=== PATIENT | male | born 1995 | race Caucasian/White ===

== ENCOUNTER 2018-06-04 11:32 | Emergency (ER) | payer SELFPAY ==
[2018-06-04 11:37] VITALS: BP 133/102; PULSE 82; RESP 18; TEMP 36.9; O2SAT 98
--- NOTE | 2018-06-04 11:42 | DI.RPTCT_ITS ---
SYMPTOM/DIAGNOSIS: S/P HIT NOSE ON TRAMPOLINE, R/O ACUTE FX, INTRACRANIAL INJURY CT SCAN FACE AND BRAIN: Noncontrast examination was performed. No priors for comparison. No intracranial hemorrhage is seen. The [place] white matter differentiation is intact. The ventricles are intact. The basilar cisterns are patent There is no acute midline shift or mass effect. No evidence of a calvarial fracture is present. There is an angulated fracture of the anterior nasal spine of the maxilla. There are bilateral nasal bone fractures. The left nasal bone is comminuted and mildly depressed. No other facial fractures identified. There is mucosal thickening seen in the anterior ethmoid air cells and frontal sinuses bilaterally. The remaining visualized paranasal sinuses are clear. No fluid levels are present. The orbits and retro-orbital soft tissues are unremarkable.. IMPRESSION: 1. No acute intracranial process 2. Fractures involving the nasal bones and the anterior nasal spine of the maxilla. The findings were discussed with Dr. Arroyo of the Emergency Department on the date of the examination. CT SCAN CERVICAL SPINE: Multiple contiguous axial images of the cervical spine were obtained. Sagittal and coronal reformatted images were evaluated on the [facility]'s work station. There is no acute fracture or subluxation of the cervical spine. The bones are normally mineralized. There is no prevertebral soft tissue swelling. The lung apices are clear. IMPRESSION: No acute fractures or subluxations in the cervical spine. The findings were conveyed to the Emergency Department on the date of the examination.
--- NOTE | 2018-06-04 11:43 | ED.GENADUL_ITS ---
Disposition Clinical Impression: Nasal bone fractures Disposition: HOME Condition: Stable Instructions: Nasal Fracture (ED), Head Injury (ED) Additional Instructions: Take Tylenol or Motrin as needed and directed for pain. No nose blowing for 2 weeks. Sneeze with mouth open for 2 weeks. Use Saline nose spray to help with bleeding or clots in your nose. Follow-up at the ear nose and throat clinic at [facility] in 1 week. You should receive a call today or tomorrow regarding a follow-up appointment. If you do not, call [facility] at [phone] and ask for the ENT clinic. Take the antibiotics until finished. Return immediately to the emergency department any worsening or new concerning symptoms. Prescriptions: Amoxicillin 875/Clav. 125 [Augmentin 875-125 Tablet] 1 each PO BID 7 Days tab Medical Decision Making - Radiology Data Radiology results: report reviewed, image reviewed - Medical Decision Making 23-year-old male presents with facial injury after fell hitting his nose on a metal pole on a trampoline. Denies LOC or vomiting. States his tetanus is up- to-date. Patient was incarcerated recently and received his tetanus there. Patient has significant trauma and deformity noted to nose. Normal extraocular movements and no evidence of free-floating bones and face or step-off. Midline C-spine tender. Remainder of exam within normal limits without chest or abdominal trauma and full range of motion of bilateral upper and lower extremities. 1220: Imaging reviewed with radiology. Patient has a lateral nasal bone fractures and a fracture of the anterior nasal spine of the maxilla in the midline. Normal head and C-spine. Remainder of face intact. Will send images to [facility] ENT for recommendations. 1330: Still awaiting [facility]. Patient states he wants to leave. The risks of and disability due to a serious pathology explained and patient fully understands the risks and demonstrates capacity to make decisions. Patient is now willing to stay. 1400: Discussed with ENT at [facility] -no acute reason for transfer. Recommends patient to follow-up with them in clinic in 1 week. Main reason for follow-up would be for cosmetic reasons or if difficulty breathing. He states patient will receive a call today or tomorrow regarding his follow-up appointment. Recommends Augmentin for 7 days. Agrees with plan for suture placement here and will remove the sutures in 1 week. Sutures placed without difficulty. Patient was instructed on no nose blowing, sneezing with his mouth open, and using saline nose spray as needed. Patient was instructed to return here if worse. History of Present Illness - General Chief complaint: FacialProb Stated complaint: NOSE INJURY Time Seen by Provider: 06/04/18 11:41 Source: patient Mode of arrival: ambulatory Limitations: no limitations - History of Present Illness Initial comments: Patient is a 23-year-old male who presents with facial injury after jumping on a trampoline falling and hitting his nose on the metal pole. Denies LOC or vomiting. Denies any other injuries. States his tetanus is up-to-date. - Related Data Amoxicillin 875/Clav. 125 [Augmentin 875-125 Tablet] 1 each PO BID 7 Days tab 06/04/18 Allergies Allergy/AdvReac Type Severity Reaction Status Date / Time haloperidol [From Haldol] Allergy Unverified 06/04/18 11:40 Review of Systems Constitutional: denies: chills, fever Eyes: denies: eye pain ENT: other (nose injury). denies: ear pain, dental pain Respiratory: denies: cough, shortness of breath Cardiovascular: denies: chest pain, dyspnea on exertion Gastrointestinal: denies: abdominal pain, nausea, vomiting Genitourinary: denies: urgency, dysuria, frequency Musculoskeletal: denies: back pain Skin: denies: rash, lesions Neurological: denies: headache, weakness, numbness Past Medical History - Past Medical History Medical history: no medical history Surgical history: no surgical history - Social History Smoking status: current everyday smoker Alcohol use: occasionally Drug use: marijuana General Exam - General Limitations: no limitations General appearance: alert, in no apparent distress - Eye Eye exam: Present: PERRL, EOMI - ENT ENT exam: Present: other (TM's obscured b/l due to cerumen. Multiple lacerations noted to external nose bilaterally and overlying septum. Nose appears deformed. There is active clear and serous drainage from right nares. Mild tenderness palpation of bilateral maxilla but no evidence of edema, ecchymosis. No crepitus noted to face and remainder of face does not appear deformed and no free-floating palpated. ) - Neck Neck exam: Present: other (tenderness to palpation midline cervical spine without evidence of trauma.) - Respiratory Respiratory exam: Present: normal lung sounds bilaterally, other (No evidence of trauma.). Absent: respiratory distress, wheezes, rales, rhonchi, stridor, chest wall tenderness - Cardiovascular Cardiovascular Exam: Present: regular rate, normal rhythm, other (No evidence of trauma.). Absent: bradycardia, tachycardia - GI/Abdominal GI/Abdominal exam: Present: soft, normal bowel sounds. Absent: distended, tenderness, guarding, rebound, rigid - Neurological Exam Neurological exam: Present: alert, oriented X3 - Psychiatric Psychiatric exam: Present: normal affect - Skin Skin exam: Present: warm, dry, intact Course Vital Signs - 24 hr 06/04/18 11:37 Temperature 98.4 F Pulse 82 Respiratory 18 Rate Blood Pressure 133/102 Pulse Oximetry 98 Procedures - Laceration Repair Consent Obtained: Verbal consent Time Out Performed: Yes Copious Irrigation performed: Yes Laceration Depth: Subcutaneous Bleeding Type/Amount: Moderate Complexity: Simple Anesthetic: Lidocaine 1% Material: Nylon Suture Size: 6-0 Suture Number: 7 (5 sutures midline, 2 sutures R nose)
[2018-06-04 13:47] VITALS: BP 143/93; PULSE 63; RESP 16; TEMP 36.7; O2SAT 99
[2018-06-04] MEDS: Amoxicillin 875/Clav. 125 TAB PO (14:32)
== END 2018-06-04 15:12 | disposition home or self-care (01) ==
PROVIDERS: Emergency Provider Physician Assistant
DX: S09.93XA Unspecified injury of face, initial encounter (principal); S01.21XA Laceration without foreign body of nose, initial encounter; W09.8XXA Fall on or from other playground equipment, initial encounter; Y93.44 Activity, trampolining
CPT/HCPCS: 12011; 21310; 99284; 70450; 70486; 72125; 99283; L0172